=== PATIENT | female | born 1935 | race Caucasian/White ===

== ENCOUNTER 2018-05-11 03:16 | Inpatient (IN) | payer OTHER ==
[~2018-05-11] VITALS: Ht 175.3 cm; Wt 56.7 kg
[2018-05-11] VITALS (7 sets, daily range): BP systolic 94–116; BP diastolic 48–67
--- NOTE | ~2018-05-11 | EEG ---
[address] [address] EEG STUDY REPORT Name: MEENA COCHRAN Room: [address] IN [facility]#: [id number] Admission: 05/11/18 Attend Phys: Nelson June MD Discharge: Date of : 36 Report #: [id number] THIS REPORT FOR: //name// CC: Nelson Spencer DATE OF SERVICE: 05/12/2018 This patient is being evaluated for altered mental status. EEG is being done to further evaluate that. EEG was done by placing the electrodes by standard 10-20 system of electrode placement. Both referential and sequential montages were used for recording. Background activity in this patient's EEG is about 8 Hz and 30 microvolt. This is a symmetrical activity. The patient became drowsy that is associated with bilateral slowing. Throughout the record, no active epileptiform activity was noted. IMPRESSION: Moderately abnormal EEG because it is intermixed with theta range slowing. That is a nonspecific abnormality, which can occur with encephalopathy, effect of psychotropic medication, dementia, etc. Clinical correlation is recommended. By: 1525 1532Pann marie Longo MD /nt
[~2018-05-11 03:16] MED LIST: ACETAMINOPHEN650 M5 PO; ADVAIR HFA 1112 UNIT INH; ARTIFICIAL TEAR15 M1 OPHTHALMIC; ASPIRIN81 M2; BENICAR HCT 201 EACH PO; BENICAR20 MG PO; CENTRUM SILVER1 EAC4 PO; CLONAZEPAM 1 MG1 M1 PO; COLACE 100 MG100 MG PO; EXCEDRIN CAPLE1 EACH PO; GABAPENTIN100 MG PO; HYDROCHLOROTHIA25 M2 PO; IRON325 PO; KEPPRA 500 MG500 M1 PO; LEVAQUIN 500 M500 M3 PO; LEVOTHYROXINE75 MCG PO; MULTIVITAMINS; NEXIUM40 MG; NEXIUM40 MG PO; PROTONIX40 M2 PO; ROXICODONE5 MG PO; SANTYL OINTMENT30 G1 TOP; SYNTHROID100 MCG; SYNTHROID112 MCG PO; ULTRAM 50MG TAB50 MG PO; VERAPAMIL ER180 MG PO; VERAPAMIL ER200 MG PO; VERAPAMIL ER300 MG
[2018-05-11] MEDS ORDERED: CHOLEST OFF450 MG PO (03:27)
[2018-05-11] MEDS ORDERED: MELATONIN3 MG PO (03:27)
[2018-05-11] MEDS ORDERED: CYMBALTA60 MG PO (03:27)
[2018-05-11] MEDS ORDERED: SYNTHROID100 MC1 PO (03:27)
[2018-05-11] MEDS ORDERED: OMEPRAZOLE 20 M20 M1 PO (03:28)
[2018-05-11] MEDS ORDERED: FISH OIL 1,001000 M2 PO (03:29)
[2018-05-11] MEDS ORDERED: POTASSIUM600 MG PO (03:29)
[2018-05-11] MEDS ORDERED: VERAPAMIL E.R240 M1 PO (03:29)
[2018-05-11] MEDS ORDERED: ONDANSETRON HCL4 M2 PO (03:31)
[2018-05-11] MEDS ORDERED: MILK OF MA2400 MG/10 PO (03:31)
[2018-05-11] MEDS ORDERED: LOPERAMIDE 2 MG2 M1 PO (03:31)
[2018-05-11] MEDS ORDERED: [UNRECOGNIZED DRUG - OTHER] OPHTHALMIC (03:31)
[2018-05-11] MEDS ORDERED: NYSTATIN15 G1 TOP (03:32)
[2018-05-11] MEDS ORDERED: SEROQUEL 25 MG25 M1 PO (03:32)
[2018-05-11] MEDS ORDERED: DUONEB INH (03:33)
[2018-05-11] MEDS ORDERED: TYLENOL325 MG PO (03:33)
[2018-05-11 03:40] LABS: HEMATOCRIT 35.3 % (37.0-47.0); HEMOGLOBIN 11.9 gm/dL (12.0-15.0); MCH 30.2 pg (26.0-34.0); MCHC 33.6 g/dL (28.0-37.0); MCV 89.8 fL (80.0-100.0); MPV 8.1 fl. (7.2-11.1); NUCLEATED RBCS 0 /100WBC; PLATELET COUNT* 188 thou/uL (150-400); RBC 3.93 mil/uL (4.20-5.00); RDW-CV 14.8 % (10.5-14.5); WBC 8.1 thou/uL (4.0-11.0)
[2018-05-11 03:52] LABS: APTT 44.6 Seconds (25.0-31.3); INR 1.1; PROTIME 10.8 Seconds (9.20-11.50)
[2018-05-11 03:57] LABS: ANION GAP 8 mmol/L (7-16); BUN 19 mg/dL (7-18); CALCIUM 8.4 mg/dL (8.5-10.1); CHLORIDE 97 mmol/L (98-107); CO2 33 mmol/L (21-32); CREATININE 0.9 mg/dL (0.6-1.3); GLUCOSE 100 mg/dL (70-99); SODIUM 138 mmol/L (136-145)
[2018-05-11 04:00] LABS: POTASSIUM 2.4 mmol/L (3.5-5.1)
[2018-05-11 04:02] LABS: ALBUMIN 2.4 g/dL (3.4-5.0); ALKALINE PHOSPHATASE 77 U/L (46-116); NT-PRO BRAIN NAT PEPTIDE 948 pg/mL (<300); SGOT 34 U/L (15-37); SGPT 22 U/L (30-65); TOTAL BILIRUBIN 0.6 mg/dL (<0.1-1.0); TOTAL PROTEIN 6.8 g/dL (6.4-8.2); TROPONIN-I LEVEL <0.06 ng/mL (<0.06)
[2018-05-11 04:04] LABS: URINE BLOOD NEGATIVE (Negative); URINE CLARITY CLEAR; URINE COLOR YELLOW; URINE GLUCOSE-RANDOM NEGATIVE (Negative); URINE KETONES 1+ (Negative); URINE LEUKOCYTES-REFLEX NEGATIVE (Negative); URINE NITRITE-REFLEX NEGATIVE (Negative); URINE PROTEIN 1+ (Negative); URINE SPECIFIC GRAVITY 1.025 (1.005-1.030)
[2018-05-11 04:06] LABS: ICTOTEST (BILI CONFIRMATORY) Negative (Negative); URINE BILIRUBIN 1+ (Negative)
[2018-05-11 05:53] LABS: ABSOLUTE NEUTROPHILS 7.2 thou/uL (1.6-8.1)
[2018-05-11 05:54] LABS: ABSOLUTE LYMPHOCYTES 0.4 thou/uL (0.8-5.3); ABSOLUTE MONOCYTES 0.5 thou/uL (0.0-1.2)
[2018-05-11 05:55] LABS: ANISOCYTOSIS Occasional; PLATELET ESTIMATE ADEQUATE; TOXIC GRANULATION 1+
--- NOTE | 2018-05-11 07:58 | NUR ---
PT RECEIVED FROM ED. SAT MAINTAINED IN 6L NC. PT IS DROWSY AND UNRESPONSIVE. IS INCONTINENT OF BOWEL AND BLADDER. HAS EXCORIATION ON THE BUTTOCKS, BARRIER CREAM APPLIED, PICTURE TAKEN AND CHARTED. CALL LIGHT WITHIN REACH AND BED IN LOW POSITION. HOURLY ROUNDING DONE FOR PT SAFETY.
--- NOTE | 2018-05-11 11:49 | EKG ---
[place] [address] ELECTROCARDIOGRAM REPORT Name: MEENA COCHRAN Room: [address] ADM IN [facility]#: [id number] Admission: 05/11/18 Attend Phys: Nelson June MD Discharge: Date of : 36 Report #: [id number] THIS REPORT FOR: //name// [facility] ED Test Date: 2018-05-11 Test Time: 03:46:01 Pat Name: MEENA COCHRAN Department: Room: [facility] Gender: F Life Sciences Manager: Thanh YUSUF : 1935 Requested By: Umesh Bustos Order Number: [id number] MD: Kike Lopez Measurements Intervals [place] Rate: 81 P: 67 MD: 137 QRS: 65 QRSD: 108 T: 39 QT: 411 QTc: 477 Interpretive Statements Sinus rhythm RSR' in V1 or V2, right VCD or RVH Compared to ECG 08/20/2014 10:33:18 Right ventricular hypertrophy now present RSR' in V1 or V2 now present Incomplete right bundle-branch block no longer present ST (T wave) deviation no longer present Electronically Signed On 05-11-2018 11:49:04 INCOME TAX AUDITOR by Kike Lopez [email or web address] <ELECTRONICALLY SIGNED> By: Kike Lopez MD, [facility] 05/11/18 1149 0346 0346 Kike Lopez MD, [facility] /EPI
--- NOTE | 2018-05-11 16:40 | NUR ---
PT RESTING IN BED THROUGHOUT SHIFT. REPOSITIONED FREQUENTLY. PT AWAKE THIS AFTERNOON AND ASSISTED WITH MEALS. POOR APPETITE. INCONTINENT OF URINE,DARK ORANGE URINE. PERICARE PERFORMED FREQUENTLY. SON AT THIS AM AND UPDATED ON PLAN OF CARE
[2018-05-11 18:33] LABS: INFLUENZA A ANTIGEN None Detected (None Detect); INFLUENZA B ANTIGEN None Detected (None Detect)
[2018-05-12] VITALS: BP 94/53
[2018-05-12 04:00] VITALS: BP 107/58
[2018-05-12 04:18] LABS: ABSOLUTE LYMPHOCYTES 0.5 thou/uL (0.8-5.3); ABSOLUTE MONOCYTES 0.3 thou/uL (0.0-1.2); ABSOLUTE NEUTROPHILS 6.3 thou/uL (1.6-8.1); BASOPHILS 0.2 %; HEMATOCRIT 34.6 % (37.0-47.0); HEMOGLOBIN 11.5 gm/dL (12.0-15.0); LYMPHOCYTES 6.4 %; MCHC 33.2 g/dL (28.0-37.0); MCV 90.3 fL (80.0-100.0); MONOCYTES 4.3 %; MPV 8.4 fl. (7.2-11.1); NUCLEATED RBCS 0 /100WBC; PLATELET COUNT* 214 thou/uL (150-400); POLYS 89.1 %; RBC 3.84 mil/uL (4.20-5.00); WBC 7.1 thou/uL (4.0-11.0)
--- NOTE | 2018-05-12 04:37 | NUR ---
PT CARE ASSUMED AT 1930. SAT MAINTAINED IN 6L NC. ALERT TO SELF. CALL LIGHT WITHIN REACH AND BED IN LOW POSITION. DENIES SOB AND PAIN. PT IS DROWSY. HOURLY ROUNDING DONE FOR PT SAFETY. PT IS INCONTINENT.
[2018-05-12 04:44] LABS: PREALBUMIN 5.5 mg/dL (18.0-35.7)
[2018-05-12 04:50] LABS: CALCIUM 8.6 mg/dL (8.5-10.1); CREATININE 0.7 mg/dL (0.6-1.3)
[2018-05-12 05:12] LABS: POTASSIUM 2.9 mmol/L (3.5-5.1)
[2018-05-12 08:00] VITALS: BP 127/67
[2018-05-12 12:00] VITALS: BP 137/82
[2018-05-12 16:00] VITALS: BP 118/61
--- NOTE | 2018-05-12 17:12 | NUR ---
PT AWAKE THROUGHOUT SHIFT. CONVERSING WITH STAFF. BED ALARM ON WHILE PT IN BED. TOLERATING PO WELL. FAMILY STATES PT IS AT HER BASELINE MENTAL STATUS TODAY-PLEASANTLY CONFUSED,NOT IMPULSIVE. PT UP TO CHAIR THIS PM. NSR ON MONITOR. K REPLACED PER PROTOCOL
[2018-05-12 20:00] VITALS: BP 108/60
[2018-05-13 00:49] VITALS: BP 131/64
[2018-05-13 04:40] LABS: ABSOLUTE LYMPHOCYTES 0.6 thou/uL (0.8-5.3); ABSOLUTE MONOCYTES 0.5 thou/uL (0.0-1.2); ABSOLUTE NEUTROPHILS 6.7 thou/uL (1.6-8.1); BASOPHILS 0.4 %; HEMOGLOBIN 11.8 gm/dL (12.0-15.0); LYMPHOCYTES 8.2 %; MCH 30.2 pg (26.0-34.0); MCHC 33.6 g/dL (28.0-37.0); MCV 89.8 fL (80.0-100.0); MONOCYTES 6.5 %; MPV 8.9 fl. (7.2-11.1); NUCLEATED RBCS 0 /100WBC; PLATELET COUNT* 247 thou/uL (150-400); POLYS 84.9 %; RDW-CV 15.3 % (10.5-14.5); WBC 7.9 thou/uL (4.0-11.0)
[2018-05-13 04:46] VITALS: BP 123/67
[2018-05-13 04:55] LABS: ALBUMIN 2.2 g/dL (3.4-5.0); CALCIUM 9.1 mg/dL (8.5-10.1); CREATININE 0.9 mg/dL (0.6-1.3); TOTAL BILIRUBIN 0.3 mg/dL (<0.1-1.0); TOTAL PROTEIN 6.5 g/dL (6.4-8.2)
[2018-05-13 04:56] LABS: POTASSIUM 2.4 mmol/L (3.5-5.1)
--- NOTE | 2018-05-13 07:01 | NUR ---
ASSUMED PT CARE AT 1930. ASSESSMENT COMPLETED CHARTED. UNABLE TO MAKE NEEDS KNOWN. PT HAS BEEN INCONTINENT ALL NIGHT, DID NOT SLEEP MUCH DURING THE NIGHT. RESTING IN BED AT THIS TIME. VSS. WILL CONTINUE TO MONITOR.
[2018-05-13 08:00] VITALS: BP 120/65
--- NOTE | 2018-05-13 09:54 | CON ---
[address] [address] CONSULTATION Name: MEENA COCHRAN Room: [address] IN .R.#: [id number] Admission: 05/11/18 Attend Phys: Nelson June MD Discharge: Date of : 36 Report #: [id number] THIS REPORT FOR: //name// CC: Nelson Spencer DATE OF SERVICE: 05/12/2018 HISTORY OF PRESENT ILLNESS: This is an 83-year-old female patient who was evaluated by me for altered mental status. The patient is not able to provide any reliable history and no family member is here. I reviewed the records and it looks like from the record that this patient had some hallucination and she is seeing her . She had been in a locked unit. From the record, it looks like the patient has a baseline dementia. I do not have any prior record in this patient, but the records from here indicate that the patient has a history of GERD, hypertension, anxiety, hypothyroidism, COPD, hysterectomy, tonsillectomy, knee replacement. Review of the record also indicate in 2013, she had an MRI. I am not sure the indication that was unremarkable. The patient wants to go home and she does not provide any reliable history. I cannot tell about eye, ENT symptoms. She denies any cardiac problem or any cardiac symptom or respiratory symptom, which are new. She said she is not nauseous. She is not having any GI symptoms. She is not having any musculoskeletal symptoms. She denies any dermatological, hematological constitutional, psychiatric, throat, allergic symptoms associated with present symptomatology. PAST MEDICAL HISTORY: Difficult to tell from the patient. FAMILY HISTORY: Negative for early age stroke. SOCIAL HISTORY: She says she does not drink any alcohol. PHYSICAL EXAMINATION: The patient cannot tell me what month it is, what hospital she is in. She talks. Her speech is okay, but memory and fund of knowledge is diminished. I tried to do the cranial nerve examination, she does not count the finger properly, but I do not know whether that is intentional or not. Sometimes it looks like she may be somewhat weak in the right eye, but she does not tell me if it is new or old. I tried to do the fundus. She could not cooperate. Her strength, sensation, reflexes and tone is symmetrical the best I can tell. She did not understand the instruction to do the cerebellar sign. There is no meningeal sign. There is no carotid bruit. Cardiac examination is unremarkable. No respiratory difficulty and rhonchi was noticed. Her hearing and vision looks adequate. She does not have any thyroid mass. She is moderately built individual who does not have any dysmorphic features of eyes, ears and face. Pulses are somewhat difficult to feel, blood pressure is 127/67, pulse is 59, temperature is 97.2. [place] [address] CONSULTATION Name: MEENA COCHRAN Room: [address] IN ..#: [id number] Admission: 05/11/18 Attend Phys: Nelson June MD Discharge: Date of : 36 Report #: [id number] LABORATORY DATA: White count is 7.1. Her last potassium is 2.9. Blood sugar is 201. TSH was normal and B12 was normal, but they were done long time ago down, not recent. She did not have any imaging study of the brain. IMPRESSION: Clinically, it would appear this patient has some dementia. I need to talk to the family about that. She is having some hallucination and she continued to have hallucination in spite of correcting the metabolic problems, then she will need a psychiatric consult. RECOMMENDATIONS: 1. EEG. 2. MRI. 3. Repeat TSH and vitamin B12. 4. We will try to talk to the family. 5. We will follow up after that. Thank you very much for this referral. <ELECTRONICALLY SIGNED> By: Jitendra Longo MD 05/13/18 0954 1123 2044Pann marie Longo MD /nt
[2018-05-13 11:19] VITALS: BP 128/67
--- NOTE | 2018-05-13 12:00 | NUR ---
Pt resides at [facility] on their memory care unit. Supportive dtr that is involved in POC. Plan dc back to [facility] [place], Dr recommending skilled. CM updated Dotty at [facility], they will attempt to get insurance auth for skilled. Pt is normally ambulatory. CM faxed referral. Following.
[2018-05-13 15:32] VITALS: BP 142/77
--- NOTE | 2018-05-13 16:32 | NUR ---
PT UP IN CHAIR MOST OF SHIFT. PT MAXIMUM ASSIST FROM BED TO CHAIR. PT PLEASANTLY CONFUSED WHICH DTR STATES IS HER BASELINE. PT TOLERATING PO WELL. NSR ON MONITOR. PARTICIPATED IN ALL THERAPIES
[2018-05-13 20:00] VITALS: BP 148/73
[2018-05-14] VITALS: BP 132/73
[2018-05-14 04:00] VITALS: BP 124/66
[2018-05-14 04:58] LABS: CALCIUM 9.4 mg/dL (8.5-10.1); CREATININE 0.9 mg/dL (0.6-1.3)
[2018-05-14 05:00] LABS: POTASSIUM 4.4 mmol/L (3.5-5.1)
[2018-05-14 05:01] LABS: PREALBUMIN 14.2 mg/dL (18.0-35.7)
[2018-05-14 05:13] LABS: ABSOLUTE LYMPHOCYTES 1.3 thou/uL (0.8-5.3); ABSOLUTE MONOCYTES 1.2 thou/uL (0.0-1.2); ABSOLUTE NEUTROPHILS 6.9 thou/uL (1.6-8.1); BASOPHILS 0.2 %; HEMOGLOBIN 11.6 gm/dL (12.0-15.0); LYMPHOCYTES 13.5 %; MCH 29.8 pg (26.0-34.0); MCHC 33.2 g/dL (28.0-37.0); MCV 89.8 fL (80.0-100.0); MONOCYTES 12.4 %; MPV 8.8 fl. (7.2-11.1); NUCLEATED RBCS 0 /100WBC; PLATELET COUNT* 288 thou/uL (150-400); POLYS 73.9 %; RBC 3.89 mil/uL (4.20-5.00); RDW-CV 15.2 % (10.5-14.5); WBC 9.4 thou/uL (4.0-11.0)
--- NOTE | 2018-05-14 07:28 | NUR ---
ASSUMED PT CARE @1930. PT AWAKE AND ORIENTED TO SELF, PT IS CONFUSED MOST OF THE TIME. VSS . ACCOUNTS PAYABLE LEAD IN PLACE TRACING SR. FREQUENT BED CHANGES DONE TO MAKE SURE PT IS DRY AND CLEAN. FALL PRECAUTIONS IN PLACE. HOURLY ROUNDING DONE FOR PT SAFETY. CALL LIGHT IN PLACE.
[2018-05-14 08:00] VITALS: BP 113/69
--- NOTE | 2018-05-14 10:14 | NUR ---
Pt discharging back to [facility] today. Updated nurse at facility, faxed dc orders. Chart copied. Nurse report nardae provided, [phone]. CM left VM for both son and dtr to see if they will be able to provide dc transportation, awaiting call back, if family is not able, CM will arrange transport via [facility], facility van is unavailable. Following.
[2018-05-14 12:00] VITALS: BP 102/72
[2018-05-14] MEDS ORDERED: LEVAQUIN 500 M500 M2 PO (13:34)
[2018-05-14] MEDS ORDERED: MEDROLDOSEPACK (13:36)
[2018-05-14 13:41] VITALS: BP 102/72
--- NOTE | 2018-05-14 14:00 | NUR ---
ASSUMED PT CARE AT 0730, FULL ASSESMENT DONE CHARTED. PT ORIENTED TO SELF, VERY CONFUSED, HALLUCINATING, MAX ASSIST TO AMBULATE. PT ASSIST UP TO CHAIR, ASSISTED WITH MEALS. VSS, SR ON THE MONITOR. O2 SAT 90-93% ON RA THIS AM WHEN PT TOOK IT OFF , PT PLACED BACK ON 2L, SAT 94%, PT WEANED OFF THE O2 THIS AFTERNOON. RECIEVED DISCHARGE ORDERS, PTS DAUGHTER TRANSPORTED PT BACK TO [facility], REPORT CALLED TO DURGA QUEEN.
== END 2018-05-14 14:30 | DRG 177 ==
LOC: M.ERS 03:16 → M.TBA-ER 04:22 → M.2W 04:22
PROVIDERS: Emergency Medicine Emergency Medical Services; ADMIT Internal Medicine
DX: J69.0 Pneumonitis due to inhalation of food and vomit (principal); J96.01 Acute respiratory failure with hypoxia; R65.10 Systemic inflammatory response syndrome (SIRS) of non-infectious origin without acute organ dysfunction; G93.40 Encephalopathy, unspecified; J44.9 Chronic obstructive pulmonary disease, unspecified; F41.9 Anxiety disorder, unspecified; I10 Essential (primary) hypertension; F03.90 Unspecified dementia, unspecified severity, without behavioral disturbance, psychotic disturbance, mood disturbance, and anxiety; E86.0 Dehydration; K44.9 Diaphragmatic hernia without obstruction or gangrene; K21.9 Gastro-esophageal reflux disease without esophagitis; Z90.710 Acquired absence of both cervix and uterus; Z79.899 Other long term (current) drug therapy; Z79.1 Long term (current) use of non-steroidal anti-inflammatories (NSAID); Z88.0 Allergy status to penicillin; Z88.7 Allergy status to serum and vaccine; Z91.041 Radiographic dye allergy status

== ENCOUNTER 2018-06-03 21:13 | Inpatient (IN) | payer OTHER ==
[~2018-06-03] VITALS: Ht 162.6 cm; Wt 59.3 kg
[~2018-06-03 21:13] MED LIST changes: +CHOLEST OFF450 MG PO; +CYMBALTA60 MG PO; +FISH OIL 1,001000 M2 PO; +IPRAT-ALBUT 0.5-3 ML INH; +LEVAQUIN 500 M500 M2 PO; +LOPERAMIDE 2 MG2 M1 PO; +MEDROLDOSEPACK; +MELATONIN3 MG PO; +MILK OF MA2400 MG/11 PO; +NYSTATIN15 G1 TOP; +OMEPRAZOLE 20 M20 M1 PO; +ONDANSETRON HCL4 M2 PO; +POTASSIUM600 MG PO; +SEROQUEL 25 MG25 M1 PO; +SYNTHROID100 MC1 PO; +TYLENOL325 MG PO; +[UNRECOGNIZED DRUG - OTHER] OPHTHALMIC
[2018-06-03 21:23] VITALS: BP 112/79
[2018-06-03 22:00] LABS: HEMATOCRIT 37.8 % (37.0-47.0); HEMOGLOBIN 12.6 gm/dL (12.0-15.0); MCH 29.7 pg (26.0-34.0); MCHC 33.3 g/dL (28.0-37.0); MCV 89.4 fL (80.0-100.0); MPV 7.9 fl. (7.2-11.1); NUCLEATED RBCS 0 /100WBC; PLATELET COUNT* 224 thou/uL (150-400); RBC 4.23 mil/uL (4.20-5.00); WBC 13.2 thou/uL (4.0-11.0)
[2018-06-03 22:09] LABS: PROTIME 10.7 Seconds (9.20-11.50)
[2018-06-03 22:18] LABS: ANION GAP 3 mmol/L (7-16); BUN 17 mg/dL (7-18); CALCIUM 9.1 mg/dL (8.5-10.1); CHLORIDE 100 mmol/L (98-107); CO2 39 mmol/L (21-32); GLUCOSE 170 mg/dL (70-99); POTASSIUM 3.2 mmol/L (3.5-5.1); SODIUM 142 mmol/L (136-145); TROPONIN-I LEVEL <0.06 ng/mL (<0.06)
[2018-06-03 22:26] LABS: ALBUMIN 2.8 g/dL (3.4-5.0); ALKALINE PHOSPHATASE 107 U/L (46-116); LIPASE 96 U/L (73-393); NT-PRO BRAIN NAT PEPTIDE 357 pg/mL (<300); SGOT 21 U/L (15-37); SGPT 14 U/L (30-65); TOTAL BILIRUBIN 0.2 mg/dL (<0.1-1.0); TOTAL PROTEIN 6.8 g/dL (6.4-8.2)
[2018-06-03 22:59] LABS: ABSOLUTE LYMPHOCYTES 0.8 thou/uL (0.8-5.3); ABSOLUTE MONOCYTES 0.4 thou/uL (0.0-1.2)
[2018-06-03 23:00] LABS: PLATELET ESTIMATE ADEQUATE
[2018-06-04] VITALS (8 sets, daily range): BP systolic 107–157; BP diastolic 55–97
--- NOTE | 2018-06-04 12:54 | EKG ---
[place] [address] ELECTROCARDIOGRAM REPORT Name: MEENA COCHRAN Room: [address] ADM IN ..#: [id number] Admission: 06/03/18 Attend Phys: Jeannette Yates MD Discharge: Date of : 36 Report #: [id number] THIS REPORT FOR: //name// [facility] ED Test Date: 2018-06-03 Test Time: 21:38:17 Pat Name: MEENA COCHRAN Department: Room: [facility] Gender: F Operations Support Manager: : 1935 Requested By: Padma Lockhart Order Number: [id number] MD: Ezra House Measurements Intervals [place] Rate: 106 P: 76 [place]: 165 QRS: 68 QRSD: 102 T: 50 QT: 360 QTc: 479 Interpretive Statements Sinus tachycardia Biatrial enlargement RSR' in V1 or V2, right VCD or RVH Borderline prolonged QT interval Artifact in lead(s) V1,V2,V4,V5,V6 Compared to ECG 05/11/2018 03:46:01 Atrial abnormality now present Electronically Signed On 06-04-2018 12:54:22 COMPTOMETRIST by Ezra House [email or web address] <ELECTRONICALLY SIGNED> By: Ezra House MD, FAC 06/04/18 1254 2138 2138 Ezra House MD, FAC /EPI
[2018-06-04 13:07] LABS: ABSOLUTE LYMPHOCYTES 1.4 thou/uL (0.8-5.3); ABSOLUTE MONOCYTES 0.6 thou/uL (0.0-1.2); ABSOLUTE NEUTROPHILS 8.6 thou/uL (1.6-8.1); BASOPHILS 0.3 %; EOSINOPHILS 0.1 %; HEMATOCRIT 29.1 % (37.0-47.0); HEMOGLOBIN 9.8 gm/dL (12.0-15.0); LYMPHOCYTES 13.1 %; MCH 30.2 pg (26.0-34.0); MCHC 33.7 g/dL (28.0-37.0); MCV 89.6 fL (80.0-100.0); MONOCYTES 5.8 %; MPV 7.3 fl. (7.2-11.1); NUCLEATED RBCS 0 /100WBC; PLATELET COUNT* 221 thou/uL (150-400); POLYS 80.7 %; RBC 3.25 mil/uL (4.20-5.00); RDW-CV 15.9 % (10.5-14.5); WBC 10.7 thou/uL (4.0-11.0)
[2018-06-05 01:03] VITALS: BP 102/66
[2018-06-05 04:57] LABS: ABSOLUTE EOSINOPHILS 0.1 thou/uL (0.0-0.7); ABSOLUTE LYMPHOCYTES 1.2 thou/uL (0.8-5.3); ABSOLUTE MONOCYTES 0.5 thou/uL (0.0-1.2); BASOPHILS 0.5 %; EOSINOPHILS 1.4 %; HEMATOCRIT 26.1 % (37.0-47.0); HEMOGLOBIN 8.8 gm/dL (12.0-15.0); LYMPHOCYTES 19.9 %; MCH 30.4 pg (26.0-34.0); MCHC 33.7 g/dL (28.0-37.0); MCV 90.2 fL (80.0-100.0); MONOCYTES 9.2 %; NUCLEATED RBCS 0 /100WBC; PLATELET COUNT* 194 thou/uL (150-400); RBC 2.89 mil/uL (4.20-5.00); RDW-CV 16.3 % (10.5-14.5); WBC 5.8 thou/uL (4.0-11.0)
[2018-06-05 05:06] VITALS: BP 126/72
[2018-06-05 05:16] LABS: CALCIUM 8.1 mg/dL (8.5-10.1); CREATININE 0.7 mg/dL (0.6-1.3); POTASSIUM 3.9 mmol/L (3.5-5.1)
[2018-06-05 08:00] VITALS: BP 118/62
[2018-06-05 12:00] VITALS: BP 104/52
--- NOTE | 2018-06-05 12:35 | CON ---
[address] [address] CONSULTATION Name: MEENA COCHRAN Room: [address] IN .R.#: [id number] Admission: 06/03/18 Attend Phys: Jeannette Yates MD Discharge: Date of : 36 Report #: [id number] THIS REPORT FOR: //name// CC: Fatemeh Yates DATE OF SERVICE: 06/04/2018 ADDENDUM REASON FOR CONSULT: Hematemesis. I have personally seen and examined the patient and reviewed labs and imaging. The patient with history of large hiatal hernia and NSAID use, who presents with hematemesis. Her vitals are stable, but her hemoglobin has dropped from 12.6 to 9.8 since admission. The patient denies any abdominal pain or change in bowel habits. She also does not have any coagulopathy. We will go ahead and proceed with upper endoscopy and make further recommendation based on finding. <ELECTRONICALLY SIGNED> By: Yaakov Nam MD 06/05/18 1235 1806 0143Yaakov Nam MD /nt
--- NOTE | 2018-06-05 12:35 | CON ---
[address] [address] CONSULTATION Name: MEENA COCHRAN Room: [address] IN .R.#: [id number] Admission: 06/03/18 Attend Phys: Jeannette Yates MD Discharge: Date of : 36 Report #: [id number] THIS REPORT FOR: //name// CC: Clement Yates DICTATED BY: Yadi Santiago [facility] DATE OF SERVICE: 06/04/2018 Please note, at time of this dictation, the patient was seen and physically examined by myself. REASON FOR CONSULTATION: Hematemesis, upper GI bleed. HISTORY OF PRESENT ILLNESS: This is an 83-year-old female who resides in an extended care facility who last evening started having vomiting of coffee-ground emesis in which she had approximately 7 prior to her arrival. At that time, the patient told staff that she felt sensations of nausea with these episodes. An NG tube has been placed upon arrival and she had about 1400 mL out of coffee-ground emesis until she pulled it up this morning at 7:30. She denies any nausea or vomiting at the present time and denies any abdominal pain. In talking with her son, he states that about a year and a half ago prior to her going into the extended care facility, she had a history of alcohol abuse and NSAID abuse as well. She has not had any for the last year and a half. The patient did have an EGD with us back in 2007 that showed a very large hiatal hernia. In 2008, she had a colonoscopy with previous history of microscopic colitis and just showed diverticulosis and internal hemorrhoids. The patient recently was hospitalized for pneumonia here at [facility] and went back to the group home on 05/23/2018. ALLERGIES: INCLUDE IODINE, PENICILLIN, AND TETANUS. MEDICATIONS FROM HOME: Include hydrochlorothiazide, multivitamin, Cymbalta, Synthroid, melatonin, omeprazole 20 mg, potassium, verapamil, fish oil, Zofran, Seroquel, Tylenol. PAST MEDICAL HISTORY: GERD, hypertension, anxiety, hypothyroidism, COPD. PAST SURGICAL HISTORY: Left total knee replacement, hysterectomy, left breast biopsy, tonsillectomy and right ankle. FAMILY HISTORY: Noncontributory. SOCIAL HISTORY: Past use of alcohol and tobacco use, none [place] [address] CONSULTATION Name: MEENA COCHRAN Room: [address]#: [id number] Admission: 06/03/18 Attend Phys: Jeannette Yates MD Discharge: Date of : 36 Report #: [id number] a half. REVIEW OF SYSTEMS: Twelve-point review of systems is essentially negative except what is mentioned in the HPI. Neuro: The patient is pleasantly demented. PHYSICAL EXAMINATION: VITAL SIGNS: Temperature 36.9, pulse 87, respirations 23, blood pressure 110/62. HEART: Regular rate and rhythm. LUNGS: Diminished, but clear. ABDOMEN: Soft, positive bowel sounds in all 4 quadrants with no masses or tenderness noted. LABORATORY DATA: Hemoglobin on admission was 12.6, she is 11.6, white count 13.2, platelets 224. PT 10.7, INR 1. Sodium 142, potassium 3.2, BUN is 17 and creatinine is 1.0. GFR is 53. LFTs are completely normal. Chest x-ray confirmed hiatal hernia and some atelectasis noted in the left lower lung. CT of the abdomen and pelvis showed large hiatal hernia, cholelithiasis and a large amount of stool throughout the colon. Abdominal x-ray done last evening confirming placement of the NG tube. IMPRESSION: 1. Gastrointestinal bleed. 2. Hematemesis. 3. Large hiatal hernia. 4. Dementia, pleasant. 5. Remote history of alcohol and significant nonsteroidal anti-inflammatory drugs abuse. PLAN: 1. EGD today with Dr. Nam. 2. Continue her on a Protonix drip. 3. Monitor her H and H. 4. Further recommendations to be made once the procedure has been performed. Thank you for allowing us to participate in this patient's care. Please do not hesitate to call with any questions in regard to this consult. <ELECTRONICALLY SIGNED> By: Yaakov Nam MD 06/05/18 1235 0928 2158Yaakov Nam MD /nt
[2018-06-05 16:00] VITALS: BP 107/53
[2018-06-05 20:00] VITALS: BP 127/62
[2018-06-06] VITALS: BP 127/69
[2018-06-06 04:00] VITALS: BP 124/64
[2018-06-06 08:00] VITALS: BP 140/95
[2018-06-06 08:59] LABS: HEMATOCRIT 29.1 % (37.0-47.0); HEMOGLOBIN 9.6 gm/dL (12.0-15.0); MCH 29.9 pg (26.0-34.0); MCHC 33.1 g/dL (28.0-37.0); MCV 90.3 fL (80.0-100.0); MPV 8.2 fl. (7.2-11.1); RBC 3.22 mil/uL (4.20-5.00); RDW-CV 16.1 % (10.5-14.5); WBC 4.3 thou/uL (4.0-11.0)
[2018-06-06 09:27] LABS: CALCIUM 8.3 mg/dL (8.5-10.1); CREATININE 0.7 mg/dL (0.6-1.3); MAGNESIUM 1.8 mg/dL (1.8-2.4); POTASSIUM 3.2 mmol/L (3.5-5.1)
[2018-06-06] MEDS ORDERED: PANTOPRAZOLE SO40 M1 PO (09:52)
[2018-06-06 11:18] VITALS: BP 140/95
== END 2018-06-06 12:37 | DRG 391 ==
LOC: M.ERS 21:13 → M.ICU 22:30 → M.2W 22:30 → M.TBA-ER 22:30 → M.ICU 06-04 00:50 → M.2W 06-04 19:00
PROVIDERS: Emergency Medicine; Internal Medicine; ADMIT Family Medicine
PROC: 0DJ08ZZ Inspection of Upper Intestinal Tract, Via Natural or Artificial Opening Endoscopic (ICD-10-PCS; principal; 2018-06-04)
DX: K21.0 Gastro-esophageal reflux disease with esophagitis (principal); G93.41 Metabolic encephalopathy; K92.2 Gastrointestinal hemorrhage, unspecified; D62 Acute posthemorrhagic anemia; F03.91 Unspecified dementia, unspecified severity, with behavioral disturbance; I10 Essential (primary) hypertension; J44.9 Chronic obstructive pulmonary disease, unspecified; E03.9 Hypothyroidism, unspecified; K44.9 Diaphragmatic hernia without obstruction or gangrene; K59.00 Constipation, unspecified; Z96.652 Presence of left artificial knee joint; F41.9 Anxiety disorder, unspecified; Z90.710 Acquired absence of both cervix and uterus; Z88.0 Allergy status to penicillin; Z88.8 Allergy status to other drugs, medicaments and biological substances; Z91.041 Radiographic dye allergy status; Z87.891 Personal history of nicotine dependence; Z79.899 Other long term (current) drug therapy

== ENCOUNTER 2019-09-28 19:34 | Inpatient (IN) | payer OTHER ==
[~2019-09-28] VITALS: Ht 165.1 cm; Wt 65.5 kg
--- NOTE | ~2019-09-28 | CON ---
[address] [address] CONSULTATION Name: YU COCHRANY Justin Room: [address] IN M.R.#: [id number] Admission: 09/28/19 Attend Phys: Shante Cohen MD Discharge: Date of : 36 Report #: [id number] THIS REPORT FOR: //name// cc: Aleksandr Santizo MD, Dennis R MD ~ THIS REPORT FOR: //name// CC: Aleksandr Cohen DATE OF SERVICE: 09/28/2019 REASON FOR CONSULT: Hematemesis. HISTORY OF PRESENT ILLNESS: This is an 84-year-old female who is known to us as she had a similar presentation in 05/2018. The patient had presented to ER last night with hematemesis. NG tube has been placed and 800 mL of gastric contents, which appeared coffee-ground was removed from the stomach. The patient's hemoglobin initially was 14 and now is 13. There is no report of melena or bright red blood, emesis. PAST MEDICAL HISTORY: Significant for history of large hiatal hernia, esophagitis, hypertension, hypothyroidism, COPD, urinary tract infection, history of tonsillectomy, dementia, right ankle fracture, left breast biopsy. ALLERGIES: SIGNIFICANT FOR CONTRAST, PENICILLIN AND TETANUS TOXOID. MEDICATIONS: Please refer to MAR. SOCIAL HISTORY: The patient has remote history of alcohol use and tobaccoism, but currently does not drink or smoke. FAMILY HISTORY: Noncontributory. PHYSICAL EXAMINATION: VITAL SIGNS: Reveals blood pressure of 127/65, respirations 15, pulse 76, temperature 99.6. LUNGS: Decreased breath sounds at the bases bilaterally. CARDIOVASCULAR: Regular rate. ABDOMEN: Mildly distended, but soft. Bowel sounds are positive. LABORATORY DATA: Reveal sodium of 144, potassium 3.2, BUN is 27, creatinine 1.0. Liver function tests all within normal limit. WBC 16.4 with hemoglobin of 13.2 and platelets of 214. IMAGING: Abdominal x-ray was obtained on admission. This [place] [address] CONSULTATION Name: MEENA COCHRAN Room: [address] IN [facility]#: [id number] Admission: 09/28/19 Attend Phys: Shante Cohen MD Discharge: Date of : 36 Report #: [id number] placement of NG tube, which was in the upper abdomen. ASSESSMENT AND PLAN: The patient with history of large hiatal hernia, esophagitis, and previous upper GI bleed, who presents with hematemesis. We will proceed with upper endoscopy. Her hemoglobin has not dropped significantly, but we will continue to monitor. Also, the patient has been started on Protonix drip. I will make further recommendation after endoscopic evaluation is complete. By: 1506 1542Farid Lilian Nam MD /nt
--- NOTE | ~2019-09-28 | PROC ---
[address] [address] PROCEDURE REPORT Name: MEENA COCHRAN Room: [address] ADM IN M.R.#: [id number] Admission: 09/28/19 Attend Phys: Sahnte Cohen MD Discharge: Date of : 36 Report #: [id number] THIS REPORT FOR: //name// cc: Aleksandr Santizo MD, Dennis R MD ~ THIS REPORT FOR: //name// For GI report, please see the Provation report in Perceptive 7 content. By: 1137Medical Records Staff CANDY /CATERINA
[~2019-09-28 19:34] MED LIST changes: +PANTOPRAZOLE SO40 M1 PO
[2019-09-28 19:54] LABS: ABSOLUTE BASOPHILS 0.1 thou/uL (0.0-0.2); ABSOLUTE LYMPHOCYTES 1.5 thou/uL (0.8-5.3); ABSOLUTE MONOCYTES 1.1 thou/uL (0.0-1.2); ABSOLUTE NEUTROPHILS 13.8 thou/uL (1.6-8.1); BASOPHILS 0.4 %; HEMATOCRIT 44.9 % (37.0-47.0); HEMOGLOBIN 14.9 gm/dL (12.0-15.0); LYMPHOCYTES 8.9 %; MCHC 33.2 g/dL (28.0-37.0); MCV 90.4 fL (80.0-100.0); MONOCYTES 6.7 %; MPV 8.7 fl. (7.2-11.1); NUCLEATED RBCS 0 /100WBC; PLATELET COUNT* 214 thou/uL (150-400); RBC 4.97 mil/uL (4.20-5.00); RDW-CV 14.7 % (10.5-14.5); WBC 16.4 thou/uL (4.0-11.0)
[2019-09-28 19:56] VITALS: BP 118/76
[2019-09-28 20:00] LABS: PROTIME 10.7 Seconds (9.20-11.50)
[2019-09-28 20:01] LABS: CALCIUM 9.4 mg/dL (8.5-10.1); POTASSIUM 3.2 mmol/L (3.5-5.1)
[2019-09-28 20:11] LABS: ALBUMIN 3.4 g/dL (3.4-5.0); TOTAL BILIRUBIN 0.3 mg/dL (<0.1-1.0); TOTAL PROTEIN 7.9 g/dL (6.4-8.2)
[2019-09-28 20:40] LABS: BE 10.1 mmol/L (-2 to +3); PCO2 48.8 mmHg (35.0-45.0); PO2 79.7 mmHg (75.0-100.0); pH 7.477 (7.340-7.450)
[2019-09-28 21:08] LABS: URINE BILIRUBIN NEGATIVE (Negative); URINE BLOOD 1+ (Negative); URINE CLARITY TURBID; URINE COLOR YELLOW; URINE GLUCOSE-RANDOM NEGATIVE (Negative); URINE KETONES 1+ (Negative); URINE NITRITE-REFLEX NEGATIVE (Negative); URINE PROTEIN 2+ (Negative)
[2019-09-28 21:11] LABS: URINE LEUKOCYTES-REFLEX 3+ (Negative)
[2019-09-28 21:29] LABS: BACTERIA-REFLEX >30 Many /HPF (None Seen); CASTS None Seen /LPF (None Seen); CRYSTALS None Seen /LPF (None Seen); SQUAMOUS 0-3 Few /LPF (0-3); URINE RBC 3-10 Few /HPF (0-2); URINE WBC-REFLEX >25 Many /HPF (0-5); WBC CLUMPS Many (None Seen)
[2019-09-28 22:38] VITALS: BP 123/79
[2019-09-28 22:40] VITALS: BP 134/108
[2019-09-28 23:50] VITALS: BP 120/84
[2019-09-29 03:58] VITALS: BP 107/63
[2019-09-29 08:00] VITALS: BP 126/64
--- NOTE | 2019-09-29 10:43 | EKG ---
[place] [address] ELECTROCARDIOGRAM REPORT Name: MEENA COCHRAN Room: [address] ADM IN [facility]#: [id number] Admission: 09/28/19 Attend Phys: Shante Cohen, Discharge: Date of : 37 Date of Service: 09/28/192036 Report #: [id number] THIS REPORT FOR: //name// [facility] ED Test Date: 2019-09-28 Test Time: 20:37:49 Pat Name: MEENA COCHRAN Department: Room: [facility] Gender: F Assembler Unit: LYNNE : 1935 Requested By: Padma Lockhart Order Number: [id number] MD: Dhruv Rosales Measurements Intervals [place] Rate: 111 P: 76 ID: 160 QRS: 96 QRSD: 103 T: 52 QT: 360 QTc: 489 Interpretive Statements Sinus tachycardia RSR' IN V1, NORMAL VARIATION Borderline prolonged QT interval Electronically Signed On 09-29-2019 10:42:46 CDT by Dhruv Rosales [email or web address] <ELECTRONICALLY SIGNED> By: Dhruv Rosales MD, [facility] 09/29/19 1042 36 36 Dhruv Rosales MD, [facility] /EPI
[2019-09-29 12:21] VITALS: BP 127/65
[2019-09-29 21:00] VITALS: BP 116/68
[2019-09-30] VITALS: BP 120/71
[2019-09-30] MEDS ORDERED: BUSPIRONE HCL5 MG PO (00:16)
[2019-09-30] MEDS ORDERED: DEPAKOTE 250MG250 MG PO (00:19)
[2019-09-30 04:00] VITALS: BP 112/58
[2019-09-30 05:12] LABS: HEMATOCRIT 28.7 % (37.0-47.0); MCH 30.9 pg (26.0-34.0); MCHC 34.3 g/dL (28.0-37.0); MCV 89.9 fL (80.0-100.0); MPV 8.7 fl. (7.2-11.1); RBC 3.19 mil/uL (4.20-5.00); RDW-CV 14.3 % (10.5-14.5); WBC 10.4 thou/uL (4.0-11.0)
[2019-09-30 05:13] LABS: HEMOGLOBIN 9.8 gm/dL (12.0-15.0)
[2019-09-30 05:17] LABS: ALBUMIN 2.5 g/dL (3.4-5.0); CALCIUM 7.6 mg/dL (8.5-10.1); CREATININE 0.8 mg/dL (0.6-1.3); MAGNESIUM 1.7 mg/dL (1.8-2.4); PHOSPHORUS* 1.5 mg/dL (2.5-4.9); POTASSIUM 3.3 mmol/L (3.5-5.1)
[2019-09-30] MEDS ORDERED: ATIVAN0.5 M1 PO (06:24)
[2019-09-30 08:00] VITALS: BP 119/73
[2019-09-30 12:28] VITALS: BP 115/71
[2019-09-30 16:51] VITALS: BP 126/74
[2019-09-30 20:00] VITALS: BP 135/70
[2019-10-01] VITALS: BP 145/67
[2019-10-01 05:00] VITALS: BP 120/72
[2019-10-01 05:28] LABS: POTASSIUM 2.6 mmol/L (3.5-5.1)
[2019-10-01 08:00] VITALS: BP 119/79
[2019-10-01 12:21] VITALS: BP 143/52
[2019-10-01 16:11] VITALS: BP 135/75
[2019-10-01 20:00] VITALS: BP 122/76
[2019-10-02] VITALS: BP 146/76
[2019-10-02 04:00] VITALS: BP 123/74
[2019-10-02 04:48] LABS: HEMATOCRIT 27.7 % (37.0-47.0); HEMOGLOBIN 9.4 gm/dL (12.0-15.0); MCH 30.6 pg (26.0-34.0); MCV 90.1 fL (80.0-100.0); RBC 3.07 mil/uL (4.20-5.00); WBC 6.4 thou/uL (4.0-11.0)
[2019-10-02 04:59] LABS: ALBUMIN 2.4 g/dL (3.4-5.0); CALCIUM 7.9 mg/dL (8.5-10.1); CREATININE 0.5 mg/dL (0.6-1.3); MAGNESIUM 1.9 mg/dL (1.8-2.4); PHOSPHORUS* 1.7 mg/dL (2.5-4.9)
[2019-10-02 05:00] LABS: POTASSIUM 2.9 mmol/L (3.5-5.1)
[2019-10-02 08:10] VITALS: BP 113/61
[2019-10-02] MEDS ORDERED: CEFDINIR300 MG PO (09:22)
[2019-10-02] MEDS ORDERED: PROTONIX40 M1 PO (09:32)
[2019-10-02] MEDS ORDERED: CARAFATE 1 GM TA1 G1 PO (09:32)
[2019-10-02] MEDS ORDERED: POTASSIUM20 PO (13:05)
[2019-10-02] MEDS ORDERED: K-PHOS #2 TABL1 EACH PO (13:05)
[2019-10-02 14:46] VITALS: BP 113/61
== END 2019-10-02 16:08 | DRG 871 ==
LOC: M.ERS 19:34 → M.TBA-ER 21:13 → M.ERS 21:13 → M.2W 22:04 → M.TBA-ER 22:04 → M.2W 22:31
PROVIDERS: Emergency Medicine; Family Medicine; Internal Medicine; ADMIT Internal Medicine; ATTEND Internal Medicine
PROC: 0DB58ZX Excision of Esophagus, Via Natural or Artificial Opening Endoscopic, Diagnostic (ICD-10-PCS; principal; 2019-09-29)
DX: A41.9 Sepsis, unspecified organism (principal); G93.41 Metabolic encephalopathy; E43 Unspecified severe protein-calorie malnutrition; J96.21 Acute and chronic respiratory failure with hypoxia; K92.2 Gastrointestinal hemorrhage, unspecified; N39.0 Urinary tract infection, site not specified; D62 Acute posthemorrhagic anemia; R65.20 Severe sepsis without septic shock; K21.9 Gastro-esophageal reflux disease without esophagitis; I10 Essential (primary) hypertension; F41.9 Anxiety disorder, unspecified; E03.9 Hypothyroidism, unspecified; J44.9 Chronic obstructive pulmonary disease, unspecified; Z96.652 Presence of left artificial knee joint; F03.90 Unspecified dementia, unspecified severity, without behavioral disturbance, psychotic disturbance, mood disturbance, and anxiety; R31.9 Hematuria, unspecified; E87.6 Hypokalemia; K44.9 Diaphragmatic hernia without obstruction or gangrene; K31.9 Disease of stomach and duodenum, unspecified; E83.42 Hypomagnesemia; Z20.828 Contact with and (suspected) exposure to other viral communicable diseases; K21.0 Gastro-esophageal reflux disease with esophagitis; Z90.710 Acquired absence of both cervix and uterus; Z88.0 Allergy status to penicillin; Z88.7 Allergy status to serum and vaccine; Z91.041 Radiographic dye allergy status; Z87.891 Personal history of nicotine dependence; Z09 Encounter for follow-up examination after completed treatment for conditions other than malignant neoplasm; Z87.81 Personal history of (healed) traumatic fracture

== ENCOUNTER 2019-11-13 12:59 | Inpatient (IN) | payer OTHER ==
[~2019-11-13] VITALS: Ht 152.4 cm; Wt 68.5 kg
[~2019-11-13 12:59] MED LIST changes: +ATIVAN0.5 M1 PO; +BUSPIRONE HCL5 MG PO; +CARAFATE 1 GM TA1 G1 PO; +CEFDINIR300 MG PO; +DEPAKOTE 250MG250 MG PO; +K-PHOS #2 TABL1 EACH PO; +POTASSIUM20 PO; +PROTONIX40 M1 PO
[2019-11-13 13:05] VITALS: BP 135/93
[2019-11-13] MEDS ORDERED: ARTIFICIAL TEAR1510 OPHTHALMIC (13:27)
[2019-11-13 13:41] LABS: ABSOLUTE EOSINOPHILS 0.1 thou/uL (0.0-0.7); ABSOLUTE LYMPHOCYTES 1.7 thou/uL (0.8-5.3); ABSOLUTE MONOCYTES 0.5 thou/uL (0.0-1.2); ABSOLUTE NEUTROPHILS 2.3 thou/uL (1.6-8.1); EOSINOPHILS 1.8 %; HEMOGLOBIN 11.9 gm/dL (12.0-15.0); LYMPHOCYTES 36.2 %; MCHC 33.1 g/dL (28.0-37.0); MCV 87.6 fL (80.0-100.0); MPV 8.9 fl. (7.2-11.1); NUCLEATED RBCS 0 /100WBC; PLATELET COUNT* 211 thou/uL (150-400); RBC 4.11 mil/uL (4.20-5.00); RDW-CV 14.6 % (10.5-14.5); WBC 4.6 thou/uL (4.0-11.0)
[2019-11-13 13:52] LABS: CALCIUM 8.5 mg/dL (8.5-10.1); CREATININE 0.8 mg/dL (0.6-1.3); POTASSIUM 3.6 mmol/L (3.5-5.1)
[2019-11-13 13:55] LABS: PROTIME 10.5 Seconds (9.20-11.50)
[2019-11-13 13:59] LABS: BE 3.7 mmol/L (-2 to +3); PCO2 39.6 mmHg (35.0-45.0); pH 7.462 (7.340-7.450)
[2019-11-13 14:01] LABS: PO2 138.3 mmHg (75.0-100.0)
[2019-11-13 14:03] LABS: ALBUMIN 3.3 g/dL (3.4-5.0); TOTAL BILIRUBIN 0.2 mg/dL (<0.1-1.0); TOTAL PROTEIN 7.2 g/dL (6.4-8.2)
--- NOTE | 2019-11-13 15:05 | EKG ---
[place] [address] ELECTROCARDIOGRAM REPORT Name: MEENA COCHRAN Room: [facility]#: [id number] Admission: 11/13/19 Attend Phys: Discharge: Date of : 37 Date of Service: 11/13/19 1409 Report #: [id number] THIS REPORT FOR: //name// [facility] ED Test Date: 2019-11-13 Test Time: 14:09:48 Pat Name: MEENA COCHRAN Department: Room: Gender: Access Developer: [facility] : 1935 Requested By: Tameka Wood Order Number: [id number] MD: Dhruv Rosales Measurements Intervals [place] Rate: 99 P: 72 [place]: 184 QRS: 76 QRSD: 101 T: 57 QT: 376 QTc: 483 Interpretive Statements Sinus rhythm incomplete RBBB Probable left atrial enlargement Anteroseptal infarct, age indeterminate Compared to ECG 09/28/2019 20:37:49 Sinus tachycardia no longer present Electronically Signed On 11-13-2019 15:05:47 CDT by Dhruv Rosales [email or web address] <ELECTRONICALLY SIGNED> By: Dhruv Rosales MD, [facility] 11/13/19 1505 1409 1409 Dhruv Rosales MD, [facility] /EPI
[2019-11-13 16:03] VITALS: BP 142/76
--- NOTE | 2019-11-13 16:30 | NUR ---
ASSUMED CARE OF PATIENT TONIGHT FROM ER. FAMILY AT BEDSIDE. PT AND FAMILY WERE EDUCATED ON POC, DISEASE PROCESS AND FALL SAFETY. BED INLOWEST POSITION, CALL LIGHT IN REACH AND BED ALARM IS ON, WILL CONTINUE TO MONITOR.
[2019-11-13 16:46] VITALS: BP 135/77
[2019-11-13 20:00] VITALS: BP 115/82
[2019-11-14] VITALS: BP 131/72
[2019-11-14 04:32] VITALS: BP 133/68
--- NOTE | 2019-11-14 07:56 | NUR ---
ASSUMED PT CARE AT APPROX 1930. PT IS AWAKE AND ORIENTED ONLY TO SELF, CONFUSED BUT IS COOPERATIVE WITH CARE. PHARMACY INFORMATICS SPECIALIST IS TRACING SR. PT DENIES PAIN/DISCOMFORT. PT REMAINED INCONTINENT OF BLADDER, PT KEPT CLEAN AND DRY. NO ACUTE CHANGES THROUGHOUT THIS SHIFT. HIGH FALL PRECAUTIONS IN PLACE. CALL LIGHT WITHIN REACH. HOURLY ROUNDING DONE FOR PT SAFETY.
[2019-11-14 08:00] VITALS: BP 148/79
--- NOTE | 2019-11-14 09:31 | NUR ---
PT SLEEPING AT THIS TIME, AGITATED IF WOKE. WILL ALLOW PT TO REST AND GIVE MEDICATIONS WHEN MORE AWAKE.
[2019-11-14 12:00] VITALS: BP 132/78
--- NOTE | 2019-11-14 12:23 | NUR ---
PT WAS ABLE TO WAKE AND TAKE MEDS. PT DID FALL RIGHT BACK TO SLEEP. PT RESTING AT THIS TIME,NO COMPLAINTS. PT CHANGED TO MS STATUS. VSS ON RA.
--- NOTE | 2019-11-14 15:59 | NUR ---
CM ATTEMPTED TO SPEAK TO THE PT TO DISCUSS HER HOME SITUATION, DISCHARGE PLANNING AND TO INFORM OF THE ROLE OF CM. PT ONLY ALERT TO SELF AND UNABLE TO ANSWER QUESTIONS APPROPRIATELY. RN INFORMS THAT THE PT IS FROM LTC AT [facility]. CM SPOKE TO BRYAN WITH [facility] AND SHE CONIRMS THIS. CM SPOKE TO THE PT'S DTR AND SHE INFORMS OF THE PLAN TO HAVE THE PT RETURN TO [facility] AT D/C. CM WILL REMAIN AVAILABLE TO ASSIST AND FOLLOW NEEDED. [facility] PHONE: [phone] FAX: [phone]
[2019-11-14 16:00] VITALS: BP 122/70
[2019-11-14 20:30] VITALS: BP 118/60
--- NOTE | 2019-11-15 05:38 | NUR ---
PT SLEPT QUIELTY THIS SHIFT, AWAKENS WITH CARES AND BACK TO SLEEP. TAKES MEDS CRUSHED IN PUDDING WITHOUT DIFFICULTY, NECTAR THICK WATER. DENIES PAIN. PT TURNED AND REPOSITIONED Q2 HOURS AND PRN FOR SKIN CARE AND COMFORT. INCONTINENT URINE OVERNIGHT, JESSIE CARE GIVEN AND NYSTATIN AND BARRIER CREAM APPLIED INDICATED. RAC SL. ROOM AIR SAT 92%, RT TX GIVEN ORDERED. AO TO SELF, NOT CONVERSATIONAL BUT HAS ANSWERED "YES" OR SHAKEN HEAD "NO" TO MAKE NEEDS KNOWN. DNR. CALL LITE IN EASY REACH, BED ALARM ON FOR SAFETY.
[2019-11-15 07:41] VITALS: BP 130/67
[2019-11-15] MEDS ORDERED: PREDNISONE 10 M10 MG PO (08:14)
[2019-11-15] MEDS ORDERED: PROAIR HFA8.5 GM INH (08:14)
[2019-11-15] MEDS ORDERED: FLORANEX TABLE1 EACH PO (08:14)
[2019-11-15] MEDS ORDERED: BUDESONIDE-FO10.2 G1 INH (08:14)
[2019-11-15] MEDS ORDERED: CEFDINIR300 MG PO (08:14)
[2019-11-15] MEDS ORDERED: AZITHROMYCIN 2250 MG PO (08:14)
[2019-11-15 10:59] VITALS: BP 130/67
--- NOTE | 2019-11-15 12:43 | NUR ---
REPORT CALLED TO ABRAHAM AT [facility].
--- NOTE | 2019-11-15 14:33 | NUR ---
AMBULANCE HERE FOR TRANSPORT BACK TO [facility]. COPY OF DISCHARGE PAPERWORK TO AMBULANCE STAFF AND DAUGHTER, GONZALO. IV ACCESS REMOVED. REPORT CALLED TO BRET ROSARIO.
== END 2019-11-15 14:35 | DRG 191 ==
LOC: M.ERS 12:59 → M.TBA-ER 15:10 → M.2W 15:10 → M.3W 11-14 19:38
PROVIDERS: Nurse Practitioner Family; ADMIT Internal Medicine; ATTEND Internal Medicine
DX: J44.0 Chronic obstructive pulmonary disease with (acute) lower respiratory infection (principal); F03.91 Unspecified dementia, unspecified severity, with behavioral disturbance; J44.1 Chronic obstructive pulmonary disease with (acute) exacerbation; J20.8 Acute bronchitis due to other specified organisms; K21.9 Gastro-esophageal reflux disease without esophagitis; I10 Essential (primary) hypertension; E03.9 Hypothyroidism, unspecified; K44.9 Diaphragmatic hernia without obstruction or gangrene; F41.1 Generalized anxiety disorder; F32.9 Major depressive disorder, single episode, unspecified; K29.70 Gastritis, unspecified, without bleeding; Z66 Do not resuscitate; Z20.828 Contact with and (suspected) exposure to other viral communicable diseases; Z96.652 Presence of left artificial knee joint; Z79.899 Other long term (current) drug therapy; Z88.0 Allergy status to penicillin; Z88.7 Allergy status to serum and vaccine; Z91.041 Radiographic dye allergy status; Z90.710 Acquired absence of both cervix and uterus; Z87.891 Personal history of nicotine dependence

== ENCOUNTER 2020-10-19 10:18 | Inpatient (IN) | payer OTHER ==
[~2020-10-19] VITALS: Ht 157.5 cm; Wt 64.6 kg
[~2020-10-19 10:18] MED LIST changes: +ARTIFICIAL TEAR1510 OPHTHALMIC; +AZITHROMYCIN 2250 MG PO; +BUDESONIDE-FO10.2 G1 INH; +FLORANEX TABLE1 EACH PO; +PREDNISONE 10 M10 MG PO; +PROAIR HFA8.5 GM INH
[2020-10-19 10:43] VITALS: BP 109/63
--- NOTE | 2020-10-19 10:48 | NUR ---
INFUSION TO START IV IN PATIENT
[2020-10-19 11:04] LABS: ABSOLUTE LYMPHOCYTES 1.7 thou/uL (0.8-5.3); ABSOLUTE MONOCYTES 0.6 thou/uL (0.0-1.2); ABSOLUTE NEUTROPHILS 2.7 thou/uL (1.6-8.1); BASOPHILS 0.9 %; EOSINOPHILS 0.8 %; HEMATOCRIT 39.2 % (37.0-47.0); HEMOGLOBIN 13.3 gm/dL (12.0-15.0); LYMPHOCYTES 33.8 %; MCHC 33.9 g/dL (28.0-37.0); MCV 88.5 fL (80.0-100.0); MPV 8.5 fl. (7.2-11.1); NUCLEATED RBCS 0 /100WBC; PLATELET COUNT* 153 thou/uL (150-400); POLYS 53.5 %; RBC 4.43 mil/uL (4.20-5.00); RDW-CV 14.7 % (10.5-14.5); WBC 5.1 thou/uL (4.0-11.0)
[2020-10-19 11:09] LABS: BE 1.5 mmol/L (-2 to +3); PCO2 41.4 mmHg (35.0-45.0); pH 7.419 (7.340-7.450)
[2020-10-19 11:12] LABS: PO2 139.3 mmHg (75.0-100.0)
[2020-10-19 11:23] LABS: CALCIUM 8.6 mg/dL (8.5-10.1); CREATININE 0.8 mg/dL (0.6-1.3); POTASSIUM 3.7 mmol/L (3.5-5.1)
[2020-10-19 11:32] LABS: TOTAL BILIRUBIN 0.3 mg/dL (<0.1-1.0); TOTAL PROTEIN 6.8 g/dL (6.4-8.2)
[2020-10-19] MEDS ORDERED: DECADRON6 MG PO (11:36)
[2020-10-19] MEDS ORDERED: VITAMIN C500 M1 PO (11:36)
[2020-10-19] MEDS ORDERED: ZINC50 MG PO (11:37)
[2020-10-19] MEDS ORDERED: MILK OF MA400 MG/5 M PO (11:37)
[2020-10-19] MEDS ORDERED: D3-200050 MCG PO (11:37)
[2020-10-19] MEDS ORDERED: BUSPIRONE HCL5 MG PO (11:38)
[2020-10-19] MEDS ORDERED: PROTONIX40 M2 PO (11:38)
--- NOTE | 2020-10-19 15:40 | EKG ---
[place] [address] ELECTROCARDIOGRAM REPORT Name: MEENA COCHRAN Room: [place] [address] ADM IN [facility]#: [id number] Admission: 10/19/20 Attend Phys: Domenic Ortiz Discharge: Date of : 37 Date of Service: 10/19/20 1125 Report #: [id number] THIS REPORT FOR: //name// [facility] ED Test Date: 2020-10-19 Test Time: 11:25:21 Pat Name: MEENA COCHRAN Department: Room: [facility] Gender: F Toe Puncher: : 1935 Requested By: Tameka Wood Order Number: [id number] MD: Cuco Valadez Measurements Intervals [place] Rate: 75 P: 79 W[place]: 158 QRS: 93 QRSD: 103 T: 67 QT: 409 QTc: 457 Interpretive Statements Sinus rhythm Right axis deviation Borderline low voltage, extremity leads Baseline wander in lead(s) I,II,aVR Compared to ECG 11/13/2019 14:09:48 Right-axis deviation now present Right bundle-branch block no longer present Myocardial infarct finding no longer present Electronically Signed On 10-19-2020 15:40:34 CDT by Cuco Valadez [email or web address] <ELECTRONICALLY SIGNED> By: Cuco Valadez MD, [facility] 10/19/20 1540 1125 1125 Cuco Valadez MD, [facility] /EPI
[2020-10-19 15:56] LABS: APTT 36.7 Seconds (25.0-31.3); PROTIME 10.6 Seconds (9.20-11.50)
[2020-10-19 16:33] VITALS: BP 111/59
[2020-10-19 16:36] VITALS: BP 111/59
[2020-10-19 17:17] VITALS: BP 124/62
[2020-10-19 20:00] VITALS: BP 115/56
[2020-10-20] VITALS (7 sets, daily range): BP systolic 119–145; BP diastolic 62–94
[2020-10-20 04:24] LABS: ABSOLUTE LYMPHOCYTES 0.9 thou/uL (0.8-5.3); ABSOLUTE MONOCYTES 0.5 thou/uL (0.0-1.2); ABSOLUTE NEUTROPHILS 2.9 thou/uL (1.6-8.1); BASOPHILS 0.2 %; HEMATOCRIT 37.5 % (37.0-47.0); HEMOGLOBIN 12.2 gm/dL (12.0-15.0); LYMPHOCYTES 21.3 %; MCH 28.9 pg (26.0-34.0); MCHC 32.7 g/dL (28.0-37.0); MCV 88.4 fL (80.0-100.0); MONOCYTES 10.6 %; MPV 8.8 fl. (7.2-11.1); NUCLEATED RBCS 0 /100WBC; PLATELET COUNT* 160 thou/uL (150-400); POLYS 67.9 %; RBC 4.24 mil/uL (4.20-5.00); RDW-CV 14.7 % (10.5-14.5); WBC 4.3 thou/uL (4.0-11.0)
[2020-10-20 04:25] LABS: ALBUMIN 2.7 g/dL (3.4-5.0); CALCIUM 8.5 mg/dL (8.5-10.1); CREATININE 0.6 mg/dL (0.6-1.3); POTASSIUM 4.5 mmol/L (3.5-5.1); TOTAL BILIRUBIN 0.1 mg/dL (<0.1-1.0); TOTAL PROTEIN 6.2 g/dL (6.4-8.2)
--- NOTE | 2020-10-20 04:46 | NUR ---
ASSUMED CARE OF PT AFTER REPORT AT 1930. PT ALERT & ORIENTED. NONVERBAL. ABLE TO COMMUNICATE BY NODDING OR SHAKING HEAD. VSS. PHYSICAL ASSESSMENT COMPLETED AND CHARTED. PT ON O2 AT 2L NC. PT TRACING SR ON TELE. MRSA SWAB & UA SPECIMEN SENT TO LAB. AWAITING COVID PCR. FALL PRECAUTIONS IN PLACE. CALL LIGHT WITHIN REACH.
[2020-10-20 04:47] LABS: URINE BILIRUBIN NEGATIVE (Negative); URINE BLOOD NEGATIVE (Negative); URINE CLARITY CLEAR; URINE COLOR YELLOW; URINE GLUCOSE-RANDOM NEGATIVE (Negative); URINE KETONES NEGATIVE (Negative); URINE LEUKOCYTES-REFLEX NEGATIVE (Negative); URINE NITRITE-REFLEX NEGATIVE (Negative); URINE PROTEIN NEGATIVE (Negative)
--- NOTE | 2020-10-20 10:48 | NUR ---
CM ASSESSMENT: PT COVID POSITIVE AND CURRENTLY UNDER ENHANCED PRECAUTIONS. CM SPOKE TO PT'S DTR AND SHE INFORMS THAT THE PT CONTINUES TO RESIDE AT LTC AT [facility]. PT IS WHEELCHAIR BOUND. PT'S DTR INFORMS OF PLAN FOR THE PT TO RETURN TO [facility] LTC AT D/C. CM AWAITING A RETURN CALL FROM [facility] TO DISCUSS ABILITY TO ACCEPT A COVID POSITIVE PT AT D/C. CM WILL REMAIN AVAILABLE TO ASSIST AND FOLLOW NEEDED. [facility] PHONE: [phone]
--- NOTE | 2020-10-20 23:15 | NUR ---
ASSUMED CARE OF PT AT 1900. PT IS CONFUSED AND MOSTLY NONVERBAL. VSS. PT IS ON 2 LITERS O2. NO COMPLAINTS OF PAIN. PT DENIES KNOWING WHERE AND WHY SHE IS HERE. WHEN ASKED WHAT MONTH IT IS. PT REPLIED THAT IT IS MAY. PT IS IN SINUS RYTHM ON THE TELEMETRY. PT IS RESTING COMFORTABLY IN BED. RESPIRATIONS ARE EVEN AND NONLABORED. WILL CONTINUE TO MONITOR PT.
[2020-10-21 01:11] VITALS: BP 132/68
[2020-10-21 04:23] LABS: ABSOLUTE LYMPHOCYTES 1.6 thou/uL (0.8-5.3); ABSOLUTE MONOCYTES 0.5 thou/uL (0.0-1.2); ABSOLUTE NEUTROPHILS 2.8 thou/uL (1.6-8.1); BASOPHILS 0.5 %; EOSINOPHILS 0.1 %; HEMATOCRIT 36.2 % (37.0-47.0); LYMPHOCYTES 33.2 %; MCH 29.6 pg (26.0-34.0); MCHC 33.1 g/dL (28.0-37.0); MCV 89.3 fL (80.0-100.0); MONOCYTES 9.6 %; MPV 8.8 fl. (7.2-11.1); NUCLEATED RBCS 0 /100WBC; PLATELET COUNT* 169 thou/uL (150-400); POLYS 56.6 %; RBC 4.05 mil/uL (4.20-5.00); RDW-CV 14.7 % (10.5-14.5); WBC 4.9 thou/uL (4.0-11.0)
[2020-10-21 04:33] LABS: ALBUMIN 2.8 g/dL (3.4-5.0); CALCIUM 8.1 mg/dL (8.5-10.1); CREATININE 0.7 mg/dL (0.6-1.3); POTASSIUM 4.3 mmol/L (3.5-5.1); TOTAL BILIRUBIN 0.1 mg/dL (<0.1-1.0); TOTAL PROTEIN 6.1 g/dL (6.4-8.2)
[2020-10-21 05:30] VITALS: BP 133/59
[2020-10-21 08:00] VITALS: BP 129/71
[2020-10-21 11:59] VITALS: BP 132/68
--- NOTE | 2020-10-21 15:34 | NUR ---
PLAN OF CARE: PHYSICIAN INFORMS OF PLAN FOR THE PT TO REMAIN INPT AT THIS TIME. PT COVID POSITIVE AND REMAINS UNDER ENHANCED PRECAUTIONS. PT CURRENTLY ON 2L-3L O2, AND DID NOT USE OXYGEN PRIOR TO ADMIT. PLAN FOR THE PT TO RETURN TO HER LTC BED AT [facility] AT /. CM WILL REMAIN AVAILABLE TO ASSIST AND FOLLOW NEEDED.
[2020-10-21 16:16] VITALS: BP 133/68
--- NOTE | 2020-10-21 18:23 | NUR ---
PT CONFUSED, PULLS AT HER HEART MONITOR AND PULLED OUT HER IV. NEW 22G PLACED IN RIGHT WRIST FOR IV ABT. PT ON ROOM AIR AT 95%
--- NOTE | 2020-10-21 22:32 | CON ---
[address] [address] CONSULTATION Name: MEENA COCHRAN Room: [address] IN M.R.#: [id number] Admission: 10/19/20 Attend Phys: Regina Mosquera Discharge: Date of : 37 Report #: [id number] THIS REPORT FOR: cc: Aleksandr Santizo MD, Dennis R MD Pervez, Adeel MD ~ DATE OF CONSULTATION: 10/19/2020 REQUESTING PHYSICIAN: Domenic Ortiz DO INDICATION FOR CONSULTATION: COVID-19. HISTORY OF PRESENT ILLNESS: This is an 85-year-old female with past medical history as mentioned below. This does include a history of COPD. The patient is a resident of a nursing [facility]. The patient has been vaccinated for COVID-19, but the patient still reports that she was tested positive for COVID-19 at the long-term 4 days ago. She subsequently started becoming hypoxemic, O2 saturations as low as 65% were recorded. The patient eventually was noted to also be short of breath; therefore, was transferred here. Upon arrival, the patient was saturating 86% on 5 liters of nasal cannula, there in fact has been some improvement in oxygenation. The patient still continues to require supplemental oxygen, but is maintaining O2 saturation in the mid 90s with 3 liters of nasal cannula at this time. She is drowsy. She is fully arousable. She, however, does not answer any questions on account of the fact that the patient has dementia. REVIEW OF SYSTEMS: I asked her 12 questions for review of systems, the patient did not respond. PAST MEDICAL HISTORY: COPD, dementia, GERD, hypertension, anxiety, left knee replacement, hypothyroidism, UTI, breast biopsy, hysterectomy, GI bleed. SOCIAL HISTORY: There is a history of smoking in the past, she is reported to have now discontinued, unable to quantify. The patient is also reported to have used alcohol in the past, unable to quantify; no current or recent alcohol use. No known history of illegal drug use. ALLERGIES: IODINE DYE, PENICILLINS AND TETANUS TOXOID. The patient tolerates cephalosporins without problems. FAMILY HISTORY: Not available. PHYSICAL EXAMINATION: GENERAL: She is drowsy. I was able to fully arouse her. When aroused, she only stared at me and did [place] [address] CONSULTATION Name: MEENA COCHRAN Room: [address]#: [id number] Admission: 10/19/20 Attend Phys: Regina Mosquera Discharge: Date of : 37 Report #: [id number] VITAL SIGNS: Has a pulse of 68 and a blood pressure of 124/62, is saturating 97% on 3 liters of nasal cannula, respiratory rate is mildly elevated to 20, she is afebrile with a temperature of 36.4. HEENT: Head is normocephalic and atraumatic. Throat examination was not possible due to limited patient cooperation. NECK: Does not show raised JVP. CHEST: Clear to auscultation. HEART: Regular. There is no murmur. ABDOMEN: Soft and nontender. EXTREMITIES: Lower extremities show no edema. There is no calf tenderness. There are no varicose veins noted. NEUROLOGICAL: She does move all extremities bilaterally equally and spontaneously. There is no focal deficit. IMAGING STUDIES: The patient's chest x-ray is reviewed and shows small opacities at the right lung base. I assessed further by CT chest without contrast; bilaterally, there are chronic changes, there are some infiltrates, but these are at least present since 2020; there is a large hiatal hernia. LABORATORY DATA: The patient's lab work is in [employer] and this is reviewed. Her COVID-19 antigen is negative, but PCR is pending. ASSESSMENT AND PLAN: 1. Acute hypoxemic respiratory failure secondary to COVID-19. We would continue to titrate oxygen. Recommend avoiding supine sleep. Recommend out of bed to chair. 2. COVID-19. Agree with dexamethasone at 6 mg an hour. I will go ahead and start remdesivir as well. Watch LFTs. 3. Pulmonary infiltrates. I reviewed the CT. This looks essentially identical to the CT abdomen and pelvis, which was performed in 2020, do appear to have progressed compared with 2015. These are likely secondary to chronic changes and atelectasis due to a large hiatal hernia. I decided to hold off on administering more antibiotics for now, primarily appears to be a viral respiratory tract infection, she has already received one dose of ceftriaxone and azithromycin. Today, we will do cultures. I will reassess tomorrow. 4. Chronic obstructive pulmonary disease, not actively bronchospastic, is reported to have smoked in the past. We will start Brovana. Dexamethasone as above. 5. Gastroesophageal reflux disease/large hiatal hernia. She would likely have fairly significant reflux with a hiatal hernia of this size. I ordered PPI b.i.d., also recommend aspiration precautions. 6. Fluid and electrolytes. If the patient is able to take orally, then I would favor holding off on IV fluids unless there is hemodynamic instability or if the patient's BUN and creatinine rise in which case, certainly, we can restart. [place] [address] CONSULTATION Name: DIMASMEENA Room: [address] ADM IN M.R.#: [id number] Admission: 10/19/20 Attend Phys: Regina Mosquera Discharge: Date of : 37 Report #: [id number] 7. Deep venous thrombosis prophylaxis/mild elevation in D-dimer. D-dimer is only mildly elevated at 0.57. I feel that thromboembolism is unlikely. I will still do venous Dopplers. If these are negative, we are planning to hold off on further evaluation for now, but I will give her Lovenox in the prophylactic dose. 8. Clostridium difficile prophylaxis, Lactinex. 9. History of dementia. Thank you for this consultation. <ELECTRONICALLY SIGNED> By: Bernardo Ortega MD 10/21/20 2232 1714 0021Aloren Ortega MD /nt
--- NOTE | 2020-10-22 00:14 | NUR ---
ASSUMED CARE OF PT AT 1900. PT IS CONFUSED. SHELLEY. ALETHA. PT REFUSES TO HAVE AN IV. PT ALSO PULLING OFF HER TELEMETRY. PT IS IN SINUS RYTHM ON THE TELEMETRY. PT IS RESTING COMFORTABLY IN BED. RESPIRATIONS ARE EVEN AND NONLABORED. WILL CONTINUE TO MONITOR PT.
[2020-10-22 00:28] VITALS: BP 138/86
[2020-10-22 04:26] VITALS: BP 155/83
[2020-10-22 04:34] LABS: ABSOLUTE MONOCYTES 0.6 thou/uL (0.0-1.2); ABSOLUTE NEUTROPHILS 2.4 thou/uL (1.6-8.1); BASOPHILS 0.3 %; EOSINOPHILS 0.1 %; HEMOGLOBIN 12.7 gm/dL (12.0-15.0); LYMPHOCYTES 39.2 %; MCH 29.8 pg (26.0-34.0); MCHC 33.3 g/dL (28.0-37.0); MCV 89.3 fL (80.0-100.0); MPV 8.7 fl. (7.2-11.1); NUCLEATED RBCS 0 /100WBC; PLATELET COUNT* 173 thou/uL (150-400); POLYS 48.4 %; RBC 4.25 mil/uL (4.20-5.00); RDW-CV 14.7 % (10.5-14.5)
[2020-10-22 04:53] LABS: CALCIUM 8.4 mg/dL (8.5-10.1); CREATININE 0.7 mg/dL (0.6-1.3); MAGNESIUM 1.9 mg/dL (1.8-2.4); TOTAL BILIRUBIN 0.2 mg/dL (<0.1-1.0); TOTAL PROTEIN 6.5 g/dL (6.4-8.2)
--- NOTE | 2020-10-22 07:30 | NUR ---
CHANGE OF SHIFT REPORT GIVEN PATIENT RESTING IN BED ASSUMED PATIENT CARE
[2020-10-22 08:00] VITALS: BP 144/68
[2020-10-22 11:44] VITALS: BP 135/87
--- NOTE | 2020-10-22 15:31 | NUR ---
patient discharged back to [facility] via ambulance discharge packet sent iv out and heart monitor removed telephone report called to yemi
== END 2020-10-22 15:30 | DRG 177 ==
LOC: M.ERS 10:18 → M.ORTHSURG 11:37 → M.TBA-ER 11:37 → M.ORTHSURG 16:55
PROVIDERS: Internal Medicine Critical Care Medicine; Nurse Practitioner Family; ADMIT Internal Medicine; ATTEND Internal Medicine
PROC: XW033E5 Introduction of Remdesivir Anti-infective into Peripheral Vein, Percutaneous Approach, New Technology Group 5 (ICD-10-PCS; principal; 2020-10-19)
PROC: 5A0935A Assistance with Respiratory Ventilation, Less than 24 Consecutive Hours, High Flow/Velocity Cannula (ICD-10-PCS; 2020-10-20)
DX: U07.1 COVID-19 (principal); J96.01 Acute respiratory failure with hypoxia; J12.82 Pneumonia due to coronavirus disease 2019; G93.41 Metabolic encephalopathy; F03.91 Unspecified dementia, unspecified severity, with behavioral disturbance; J44.9 Chronic obstructive pulmonary disease, unspecified; K21.9 Gastro-esophageal reflux disease without esophagitis; I10 Essential (primary) hypertension; Z96.652 Presence of left artificial knee joint; K44.9 Diaphragmatic hernia without obstruction or gangrene; F41.9 Anxiety disorder, unspecified; T50.B95A Adverse effect of other viral vaccines, initial encounter; E03.9 Hypothyroidism, unspecified; Z90.710 Acquired absence of both cervix and uterus; Z88.0 Allergy status to penicillin; Z88.7 Allergy status to serum and vaccine; Z91.041 Radiographic dye allergy status; Z87.891 Personal history of nicotine dependence

== ENCOUNTER 2021-01-15 23:26 | Inpatient (IN) | payer OTHER ==
[~2021-01-15] VITALS: Ht 157.5 cm; Wt 65.8 kg
[~2021-01-15 23:26] MED LIST changes: +D3-200050 MCG PO; +DECADRON6 MG PO; +MILK OF MA400 MG/5 M PO; +VITAMIN C500 M1 PO; +ZINC50 MG PO
[2021-01-15 23:27] VITALS: BP 148/83
[2021-01-15 23:46] LABS: ABSOLUTE LYMPHOCYTES 1.7 thou/uL (0.8-5.3); ABSOLUTE MONOCYTES 0.7 thou/uL (0.0-1.2); ABSOLUTE NEUTROPHILS 10.9 thou/uL (1.6-8.1); BASOPHILS 0.3 %; HEMOGLOBIN 15.7 gm/dL (12.0-15.0); LYMPHOCYTES 12.4 %; MCH 29.6 pg (26.0-34.0); MCHC 32.1 g/dL (28.0-37.0); MCV 92.2 fL (80.0-100.0); MONOCYTES 5.6 %; MPV 8.6 fl. (7.2-11.1); NUCLEATED RBCS 0 /100WBC; PLATELET COUNT* 241 thou/uL (150-400); POLYS 81.7 %; RBC 5.31 mil/uL (4.20-5.00); RDW-CV 15.6 % (10.5-14.5); WBC 13.4 thou/uL (4.0-11.0)
[2021-01-15 23:53] LABS: CALCIUM 8.8 mg/dL (8.5-10.1); CREATININE 1.1 mg/dL (0.6-1.3); POTASSIUM 3.7 mmol/L (3.5-5.1)
[2021-01-16 00:03] LABS: ALBUMIN 3.3 g/dL (3.4-5.0); MAGNESIUM 2.3 mg/dL (1.8-2.4); TOTAL BILIRUBIN 0.3 mg/dL (<0.1-1.0); TOTAL PROTEIN 7.7 g/dL (6.4-8.2)
[2021-01-16 01:16] LABS: BE -6.9 mmol/L (-2 to +3); PO2 121.8 mmHg (75.0-100.0)
[2021-01-16 01:18] LABS: PCO2 62.4 mmHg (35.0-45.0); pH 7.179 (7.340-7.450)
[2021-01-16 03:50] LABS: URINE BILIRUBIN NEGATIVE (Negative); URINE BLOOD NEGATIVE (Negative); URINE CLARITY CLEAR; URINE COLOR YELLOW; URINE GLUCOSE-RANDOM NEGATIVE (Negative); URINE KETONES 1+ (Negative); URINE LEUKOCYTES-REFLEX NEGATIVE (Negative); URINE NITRITE-REFLEX NEGATIVE (Negative); URINE PROTEIN 1+ (Negative); URINE SPECIFIC GRAVITY >= 1.030 (1.005-1.030); URINE UROBILINOGEN 0.2 E.U./dl (0.2-1.0)
[2021-01-16 04:47] VITALS: BP 129/78
--- NOTE | 2021-01-16 07:26 | NUR ---
DR SWAN CALLED AND NOTIFIED AT 0718, NOTIFIED OT PT'S STATUS AND CONCERN OF NEEDING COMFORT CARE STATUS CHANGE FOR PATIENT; GONZALO DPOA INFORMATION GIVEN TO DR. SWAN. DR. SWAN VERBALIZED UNDERSTANDING AND GIVING KEVIN SÁNCHEZ A CALL. DR SWAN CALLED ER AT 07 AND NOTIFIED NURSE THAT SHE CONTACTED GONZALO AND DAUGHTER WILL BE HERE IN ETA 20 MINUTES, NEW PHYSICIAN ORDER'S RECEIVED, REFER TO ORDERS.
--- NOTE | 2021-01-16 07:32 | NUR ---
DR. SWAN AT BEDSIDE
--- NOTE | 2021-01-16 07:58 | NUR ---
3467 DAUGHTER GONZALO AT BEDSIDE.
[2021-01-16 09:02] VITALS: BP 88/58
--- NOTE | 2021-01-16 10:27 | EKG ---
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[place] : 1935 Requested By: Padma Lockhart Order Number: [id number] MD: Dhruv Rosales Measurements Intervals [place] Rate: 139 P: [place]: QRS: 171 QRSD: 90 T: -11 QT: 308 QTc: 469 Interpretive Statements sinus tachycardia wandering baseline poor r wave progression Right axis deviation Borderline low voltage, extremity leads ST depression, probably rate related Compared to ECG 10/19/2020 11:25:21 ST (T wave) deviation now present Sinus rhythm no longer present Electronically Signed On 01-16-2021 10:27:03 CDT by Dhruv Rosales [email or web address] <ELECTRONICALLY SIGNED> By: Dhruv Rosales MD, FACC 01/16/21 1027 2334 2334 Dhruv Rosales MD, FACC /EPI
--- NOTE | 2021-01-16 11:42 | NUR ---
1140 NO PULSE PALPABLE, NC TURNED OFF. FAMILY AT BEDSIDE AND NOTIFIED OF THEIR LOVED ONE'S STATUS
[2021-01-16 11:45] VITALS: BP 0/0
--- NOTE | 2021-01-16 13:10 | NUR ---
REFER TO PACKET FOR FURTHER DOCUMENTATION. PATIENT AT 114
== END 2021-01-16 11:45 | DRG 871 ==
LOC: M.ERS 23:26 → M.TBA-ER 01-16 00:54
PROVIDERS: Emergency Medicine; ADMIT Family Medicine; ATTEND Family Medicine
PROC: 5A09357 Assistance with Respiratory Ventilation, Less than 24 Consecutive Hours, Continuous Positive Airway Pressure (ICD-10-PCS; principal; 2021-01-16)
DX: A41.9 Sepsis, unspecified organism (principal); J69.0 Pneumonitis due to inhalation of food and vomit; J96.01 Acute respiratory failure with hypoxia; E87.0 Hyperosmolality and hypernatremia; F03.91 Unspecified dementia, unspecified severity, with behavioral disturbance; K21.9 Gastro-esophageal reflux disease without esophagitis; Z20.822 Contact with and (suspected) exposure to COVID-19; I10 Essential (primary) hypertension; Z96.652 Presence of left artificial knee joint; F41.9 Anxiety disorder, unspecified; E03.9 Hypothyroidism, unspecified; K44.9 Diaphragmatic hernia without obstruction or gangrene; R73.9 Hyperglycemia, unspecified; Z90.710 Acquired absence of both cervix and uterus; Z88.0 Allergy status to penicillin; Z88.8 Allergy status to other drugs, medicaments and biological substances; Z91.041 Radiographic dye allergy status; Z87.891 Personal history of nicotine dependence; Z86.16 Personal history of COVID-19; Z88.7 Allergy status to serum and vaccine